=== PATIENT | male | born 1970 | race Caucasian/White ===

== ENCOUNTER 2016-12-29 15:33 | Emergency (ER) | payer OTHER ==
[2016-12-29 15:43] VITALS: TEMP 98.1
[2016-12-29] MEDS ORDERED: chlordiazePOXIDE 25 MG CAP PO ONE (16:08)
[2016-12-29] MEDS ORDERED: LORazepam 2 MG/ML INJ IVP ONE (16:08)
[2016-12-29] MEDS ORDERED: NS 1,000 ML IV ONE (16:08)
[2016-12-29 16:17] LABS: PLATELET COUNT 170 10^3/uL (150-400)
[2016-12-29 16:22] VITALS: RESP 19
[2016-12-29 17:11] VITALS: BP 150/99; PULSE 83; O2SAT 95
--- NOTE | 2016-12-29 17:31 | EDPHY ---
H & P Time Seen by Provider: 12/29/16 15:51 HPI/ROS: CHIEF COMPLAINT: Alcohol withdrawal HISTORY OF PRESENT ILLNESS: 46-year-old male reports that he has been drinking heavily for the last 2 weeks, and has decided to detox from alcohol. Last drink was last evening. He presents reporting anxiety, tremors, tachycardia. Patient does have a history of anxiety and uses Ativan for his anxiety. He took an Ativan tablet earlier this afternoon which seemed to help his symptom complex. He does have a history of alcohol withdrawal seizures. Denies fevers or chills, denies cough, shortness of breath, chest pain, vomiting or diarrhea, urinary complaints, seizure, lightheadedness, or headache. REVIEW OF SYSTEMS: Aside from elements discussed in the HPI, a comprehensive 10-point review of systems was reviewed and is negative. PAST MEDICAL HISTORY: Alcohol abuse, alcohol withdrawal seizures SOCIAL HISTORY: Denies illicit drug use. Nonsmoker. VITAL SIGNS Reviewed by me. Hypertensive. Tachycardic. GENERAL: Well-developed, well-nourished, slightly tremors, slightly anxious. HEENT: Atraumatic. Eyes: No injection. No nystagmus. Faint icterus. PERRL Mouth: moist mucous membranes. Very mild tongue fasciculations. No erythema or lesions. Neck: supple with no adenopathy. LUNGS: Clear to auscultation bilaterally, no wheezes, rhonchi or rales. CARDIAC: Regular rate and rhythm, no rubs, murmurs or gallops. ABDOMEN: Soft, nontender, nondistended, bowel sounds normal. BACK: No CVA tenderness. EXTREMITIES: No trauma. No edema. Range of motion is normal throughout. NEURO: Alert and oriented, grossly nonfocal. Slightly tremorous SKIN: Warm and dry, no rash. PSYCHIATRIC: Normal mentation, no agitation. Smoking Status: Never smoked Constitutional: Initial Vital Signs Temperature (C) 36.7 C 12/29/16 15:38 Heart Rate 115 H 12/29/16 15:38 Respiratory Rate 20 12/29/16 15:38 Blood Pressure 149/103 H 12/29/16 15:38 O2 Sat (%) 99 12/29/16 15:38 O2 Delivery Mode Room Air Allergies/Adverse Reactions: No Known Allergies Allergy (Verified 12/29/16 15:37) Home Medications: Medication Instructions Recorded Lexapro 12/29/16 Lorazepam 12/29/16 Ondansetron Odt [Zofran Odt 4 mg 4 mg PO Q6 PRN #8 tab 12/29/16 (RX)] chlordiazePOXIDE [Librium 25 mg 25 mg PO TID #6 cap 12/29/16 (*)] Medical Decision Making ED Course/Re-evaluation: IV placed. Patient received 2 L of normal saline, mg of Ativan IV, 25 mg of Librium by mouth. Tachycardia resolves, hypertension resolved. Tremors resolved. Labs remarkable for significant elevations in liver function tests. Discussed with patient the importance of medical supervision during alcohol withdrawal. He is not wish to be admitted to the [facility]. He does have Ativan at home but is unsure as to how to dose the ativan for alcohol withdrawal. He was carefully instructed not to use Ativan when he is drinking alcohol. He was given a prescription of Librium as an alternative to his Ativan for alcohol withdrawal. Differential Diagnosis: Differential diagnoses for the patient's symptom complex was considered including but not limited to alcohol withdrawal, benzodiazepine withdrawal, alcohol intoxication, alcohol withdrawal seizures, polysubstance abuse. - Data Points Laboratory Results: Laboratory Results 12/29/16 16:00 12/29/16 16:00 12/29/16 12/29/16 12/29/16 16:00 16:00 16:00 WBC 4.93 10^3/uL 10^3/uL (3.80-9.50) RBC 5.39 10^6/uL 10^6/uL (4.40-6.38) Hgb 16.9 g/dL g/dL (13.7-17.5) Hct 47.3 % % (40.0-51.0) MCV 87.8 fL fL (81.5-99.8) MCH 31.4 pg pg (27.9-34.1) MCHC 35.7 g/dL g/dL (32.4-36.7) RDW 13.9 % % (11.5-15.2) Plt Count 170 10^3/uL 10^3/uL (150-400) MPV 11.0 fL fL (8.7-11.7) Neut % (Auto) 55.0 % % (39.3-74.2) Lymph % (Auto) 27.2 % % (15.0-45.0) Esmeralda % (Auto) 16.8 % H % (4.5-13.0) Eos % (Auto) 0.0 % L % (0.6-7.6) Baso % (Auto) 0.8 % % (0.3-1.7) Nucleat RBC Rel Count 0.0 % % (0.0-0.2) Absolute Neuts (auto) 2.71 10^3/uL 10^3/uL (1.70-6.50) Absolute Lymphs (auto) 1.34 10^3/uL 10^3/uL (1.00-3.00) Absolute Monos (auto) 0.83 10^3/uL H 10^3/uL (0.30-0.80) Absolute Eos (auto) 0.00 10^3/uL L 10^3/uL (0.03-0.40) Absolute Basos (auto) 0.04 10^3/uL 10^3/uL (0.02-0.10) Absolute Nucleated RBC 0.00 10^3/uL 10^3/uL (0-0.01) Immature Gran % 0.2 % % (0.0-1.1) Immature Gran # 0.01 10^3/uL 10^3/uL (0.00-0.10) PT 11.6 SEC L SEC (12.0-15.0) INR 0.86 (0.83-1.16) APTT 24.6 SEC SEC (23.0-38.0) Sodium 136 mEq/L mEq/L (134-144) Potassium 3.8 mEq/L mEq/L (3.5-5.2) Chloride 91 mEq/L L mEq/L (97-110) Carbon Dioxide 29 mEq/l mEq/l (22-31) Anion Gap 16 mEq/L mEq/L (8-16) BUN 8 mg/dL mg/dL (7-23) Creatinine 0.8 mg/dL mg/dL (0.7-1.3) Estimated GFR > 60 Glucose 150 mg/dL H mg/dL (70-100) Calcium 10.3 mg/dL mg/dL (8.5-10.4) Total Bilirubin 1.8 mg/dL H mg/dL (0.1-1.4) Conjugated Bilirubin 0.4 mg/dL mg/dL (0.0-0.5) Unconjugated Bilirubin 1.4 mg/dL H mg/dL (0.0-1.1) AST 615 IU/L H IU/L (17-59) ALT 293 IU/L H IU/L (21-72) Alkaline Phosphatase 171 IU/L H IU/L (38-126) Total Protein 7.7 g/dL g/dL (6.3-8.2) Albumin 4.5 g/dL g/dL (3.5-5.0) Lipase 561 IU/L H IU/L (23-300) Medications Given: Discontinued Medications Chlordiazepoxide HCl (Librium) 25 mg PO EDNOW ONE Stop: 12/29/16 16:09 Last Admin: 12/29/16 16:17 Dose: 25 mg Sodium Chloride (Ns) 1,000 mls @ 0 mls/hr IV ONCE ONE; Wide Open PRN Reason: Protocol Stop: 12/29/16 16:09 Last Admin: 12/29/16 16:17 Dose: 1,000 mls Lorazepam (Ativan Injection) 1 mg IVP EDNOW ONE Stop: 12/29/16 16:09 Last Admin: 12/29/16 16:17 Dose: 1 mg Departure - Departure Disposition: Home, Routine, Self-Care Clinical Impression: Alcohol withdrawal, Elevated liver function tests, Alcoholism Condition: Good Instructions: Alcohol Withdrawal (ED) Additional Instructions: Please drink plenty of fluid. You been given a prescription for Zofran to use as needed for nausea and vomiting. For anxiety, tremors, and to prevent alcohol withdrawal seizure, you been given a prescription for Librium. This is a long acting medication which is good for alcohol withdrawal. Alternatively, you may use Ativan 1 mg 2 to 3 times a day. Do not take both Ativan and Librium at the same time. Do not drink alcohol while taking Ativan or Librium. Your liver function tests are markedly elevated. Stop drinking alcohol in excessive quantities. Please follow up with the primary care physician. Referrals: NONE *PRIMARY CARE P,. [Primary Care Provider] - As per Instructions Prescriptions: chlordiazePOXIDE [Librium 25 mg (*)] 25 mg PO TID #6 cap Ondansetron Odt [Zofran Odt 4 mg (RX)] 4 mg PO Q6 PRN #8 tab PRN Reason: Nausea
[2016-12-29 17:40] LABS: INR 0.86 (0.83-1.16); PROTIME(PATIENT) 11.6 SEC (12.0-15.0)
== END 2016-12-29 17:45 | disposition home or self-care (01) ==
DX: F10.239 Alcohol dependence with withdrawal, unspecified (principal); R79.89 Other specified abnormal findings of blood chemistry
CPT/HCPCS: 96374; J2060

== ENCOUNTER 2017-11-23 00:57 | Inpatient (IN) | payer BC, OTHER ==
--- NOTE | 2017-11-23 01:00 | EDPHY ---
H & P Time Seen by Provider: 11/23/17 00:59 HPI/ROS: HPI CHIEF COMPLAINT: Alcohol withdrawal. HISTORY OF PRESENT ILLNESS: 47-year-old male, presents emergency room stating that he recently binge drinks vodka. States last drink was at 10:00 a.m.. Presents emergency room stating that he feels like he is going to alcohol withdrawal feeling very shaky and tremulous. Denies vomiting. Denies chest pain or shortness of breath. I offered him to go to detox however he has declined. Past Medical History: Alcoholism, history of alcohol withdrawal Past Surgical History: No recent surgery Social History: Daily alcohol use. Recent alcohol binge drinking. Last drink 10:00 a.m.. Family History: Noncontributory ROS REVIEW OF SYSTEMS: 10 Systems were reviewed and negative with the exception of the elements mentioned in the history of present illness. Exam Constitutional of note upon arrival tremulous, tachycardic, triage nursing summary reviewed, vital signs reviewed, awake/alert. Eyes normal conjunctivae and sclera, EOMI, PERRLA. HENT normal inspection, atraumatic, moist mucus membranes, no epistaxis, neck supple/ no meningismus, no raccoon eyes. Respiratory clear to auscultation bilaterally, normal breath sounds, no respiratory distress, no wheezing. Cardiovascular tachycardia, regular rhythm, no murmur, no edema, distal pulses normal. Gastrointestinal soft, non-tender, no rebound, no guarding, normal bowel sounds, no distension, no pulsatile mass. Genitourinary no CVA tenderness. Musculoskeletal no midline vertebral tenderness, full range of motion, no calf swelling, no tenderness of extremities, no meningismus, good pulses, neurovascularly intact. Skin pink, warm, & dry, no rash, skin atraumatic. Neurologic somewhat confused, somewhat shaky, awake, alert and oriented x 3, AAOx3, moves all 4 extremities equally, motor intact, sensory intact, CN II-XII intact, normal cerebellar, normal vision Psychiatric normal mood/affect. Heme/Lymph/Immune no lymphadenopathy. Differential Diagnosis: Includes but is not limited to in a particular order acute alcohol draw, dehydration, electrolyte disturbance, anxiety Medical Decision Making: Plan for this patient IV establishment IV fluid bolus , IV Ativan, p.o. Librium 50 mg. Re-evaluate. Check basic electrolytes. Re-evaluation: Patient re-evaluated at 3:20 a.m., still very tremulous. With arm extension has significant tremors. Additionally tongue fasciculations present. Additionally he is tachycardic at 1:10 a.m.. I have given him a total 4 mg IV Ativan, will add additional 1 mg Ativan. Additionally will placed on CIWA protocol. I encouraged patient to be admitted to the hospital. 0341: Patient going through significant alcohol withdrawal. He has been placed on CIWA protocol. Additionally his potassium and magnesium a critically low. I have ordered this patient IV potassium, IV magnesium. He is receiving his 3rd L fluid. Additionally he scoring high on the CIWA protocol at 17. The Ativan dose will be adjusted appropriately. 40 mEq p.o. Potassium as been ordered. 20 mg and IV potassium Four g of Mag. 7 mg IV Ativan has been given. Patient on CIWA protocol. Thiamine and folate have been ordered. Patient received 3 L of fluid. I have asked the hospitalist service to admit this patient to the step-down unit. Close monitoring for alcohol draw and severe electrolyte abnormalities. EKG interpretation by me on record in [employer] system. Impression time of EKG 3:31 a.m., reason for EKG severe electrolyte abnormalities there appears to be U waves present on the EKG significant for hypokalemia. The patient has been placed on hypokalemic protocol and received 40 mg p.o. K and IV K here in emergency room. 0409: After extensive discussion with the patient he initially did not want to be admitted to the hospital however given the 8 mg IV Ativan he has gotten significant withdrawal symptoms, slightly elevated alcohol level, severe electrolyte disturbance that can cause cardiac arrest is highly recommended that he stays today to be rehydrated, resuscitated, electrolyte replacement, and help with his alcohol withdrawal. He has finally agreed to stay. Of note during the 3 hr of the emergency room care he has gotten worse despite 8 mg IV Ativan. Critical Care: Total Critical Care Time Spent Managing this Patient: 65 Minutes. This time was spent Exclusively with this patient. This Care was exclusive of procedures. The Organ System/life at risk was cardiovascular and neurological deterioration due to severe alcohol withdrawal This Patient was in Critical Condition because severe alcohol withdrawl. Alcohol DTs. Source: Patient - Medical/Surgical History Hx Asthma: No Hx Chronic Respiratory Disease: No Hx Diabetes: No Hx Cardiac Disease: No Hx Renal Disease: No Hx Cirrhosis: No Hx Alcoholism: Yes Hx HIV/AIDS: No Hx Splenectomy or Spleen Trauma: No Other PMH: anxiety - Social History Smoking Status: Never smoked Constitutional: Initial Vital Signs Temperature (C) 37.2 C 11/23/17 00:58 Heart Rate 122 H 11/23/17 00:58 Respiratory Rate 18 11/23/17 00:58 Blood Pressure 146/100 H 11/23/17 00:58 O2 Sat (%) 95 11/23/17 00:58 O2 Delivery Mode Room Air Allergies/Adverse Reactions: No Known Allergies Allergy (Verified 12/29/16 15:37) Home Medications: Medication Instructions Recorded Escitalopram Oxalate [Lexapro] 5 mg PO DAILY 12/29/16 Medical Decision Making - Data Points Laboratory Results: Laboratory Results 11/23/17 01:15 11/23/17 03:05 Medications Given: Enoxaparin Sodium (Lovenox) 40 mg SC DAILY SAMIRA Stop: 05/22/18 08:59 Last Admin: 11/23/17 09:51 Dose: 40 mg Folic Acid (Folic Acid) 1 mg PO DAILY SAMIRA Stop: 05/22/18 08:59 Last Admin: 11/23/17 09:51 Dose: 1 mg Potassium Chloride 40 meq/ (Sodium Chloride) 1,000 mls @ 100 mls/hr IV CONT SAMIRA Stop: 05/22/18 03:59 Last Admin: 11/23/17 18:20 Dose: 1,000 mls Dexmedetomidine HCl 400 mcg/ (Sodium Chloride) 104 mls @ 0 mls/hr IV CONT SAMIRA; Titrate PRN Reason: Protocol Stop: 05/22/18 10:29 Last Admin: 11/23/17 18:19 Dose: 104 mls Thiamine HCl 100 mg/ Sodium (Chloride) 101 mls @ 202 mls/hr IV DAILY SAMIRA Stop: 05/22/18 10:29 Last Admin: 11/23/17 10:49 Dose: 101 mls Famotidine/Sodium Chloride (Pepcid 20 Mg (Premix)) 50 mls @ 200 mls/hr IV Q12HRS SAMIRA Stop: 05/22/18 10:29 Last Admin: 11/23/17 11:59 Dose: 50 mls Lorazepam (Ativan Injection) 2 mg IVP Q6HRS SAMIRA Stop: 05/22/18 11:59 Last Admin: 11/23/17 17:34 Dose: 2 mg Multivitamins (Tab-A-Clifton) 1 each PO DAILY SAMIRA Stop: 05/22/18 08:59 Last Admin: 11/23/17 09:51 Dose: 1 each Ondansetron HCl (Zofran) 4 mg IVP Q4HRS PRN PRN Reason: Nausea/Vomiting, Can't Take PO Stop: 05/22/18 03:39 Last Admin: 11/23/17 04:48 Dose: 4 mg Discontinued Medications Chlordiazepoxide HCl (Librium) 50 mg PO EDNOW ONE Stop: 11/23/17 01:11 Last Admin: 11/23/17 01:49 Dose: 50 mg Chlordiazepoxide HCl (Librium) 25 mg PO TID [facility] Stop: 05/22/18 08:59 Last Admin: 11/23/17 09:51 Dose: 25 mg Folic Acid (Folic Acid) 1 mg PO EDNOW ONE Stop: 11/23/17 03:42 Last Admin: 11/23/17 05:16 Dose: 1 mg Sodium Chloride (Ns) 1,000 mls @ 0 mls/hr IV EDNOW ONE; Wide Open PRN Reason: Protocol Stop: 11/23/17 01:11 Last Admin: 11/23/17 01:18 Dose: 1,000 mls Sodium Chloride (Ns) 1,000 mls @ 0 mls/hr IV EDNOW ONE; Wide Open PRN Reason: Protocol Stop: 11/23/17 01:11 Last Admin: 11/23/17 01:27 Dose: 1,000 mls Potassium Chloride (Potassium Cl 20 Meq (Premix)) 100 mls @ 50 mls/hr IV EDNOW ONE Stop: 11/23/17 05:31 Last Admin: 11/23/17 04:42 Dose: 100 mls Magnesium Sulfate (Magnesium Sulf 2 Gm (Premix)) 50 mls @ 50 mls/hr IV EDNOW ONE Stop: 11/23/17 04:39 Last Admin: 11/23/17 03:40 Dose: 50 mls Magnesium Sulfate (Magnesium Sulf 2 Gm (Premix)) 50 mls @ 50 mls/hr IV EDNOW ONE Stop: 11/23/17 04:40 Last Admin: 11/23/17 05:18 Dose: 50 mls Sodium Chloride (Ns) 1,000 mls @ 0 mls/hr IV EDNOW ONE; Wide Open PRN Reason: Protocol Stop: 11/23/17 03:31 Last Admin: 11/23/17 05:20 Dose: Not Given Potassium Chloride (Potassium Cl 10 Meq (Premix)) 100 mls @ 50 mls/hr IV Q2H SAMIRA Stop: 11/23/17 15:59 Last Admin: 11/23/17 14:00 Dose: 100 mls Lorazepam (Ativan Injection) 1 mg IVP EDNOW ONE Stop: 11/23/17 01:11 Last Admin: 11/23/17 01:28 Dose: 1 mg Lorazepam (Ativan Injection) 1 mg IVP EDNOW ONE Stop: 11/23/17 01:53 Last Admin: 11/23/17 01:56 Dose: 1 mg Lorazepam (Ativan Injection) 0 mg IVP Q1H PRN; Protocol PRN Reason: Alcohol Withdrawal w/IV access Stop: 11/23/17 15:20 Last Admin: 11/23/17 04:03 Dose: 2 mg Lorazepam (Ativan Injection) 1 mg IVP EDNOW ONE Stop: 11/23/17 03:21 Last Admin: 11/23/17 05:22 Dose: Not Given Lorazepam (Ativan Injection) 0 mg IVP Q1H PRN; Protocol PRN Reason: Alcohol Withdrawal w/IV access Stop: 05/22/18 03:40 Last Admin: 11/23/17 09:59 Dose: 2 mg Lorazepam (Ativan Injection) 2 mg IVP ONCE ONE Stop: 11/23/17 03:48 Last Admin: 11/23/17 04:48 Dose: 2 mg Ondansetron HCl (Zofran) 4 mg IVP EDNOW ONE Stop: 11/23/17 01:30 Last Admin: 11/23/17 01:29 Dose: 4 mg Potassium Chloride (Potassium Chloride Oral Liquid) 40 meq PO EDNOW ONE Stop: 11/23/17 03:34 Last Admin: 11/23/17 03:40 Dose: 40 meq Thiamine HCl (Vitamin B-1) 100 mg PO EDNOW ONE Stop: 11/23/17 03:35 Last Admin: 11/23/17 04:00 Dose: 100 mg Departure - Departure Disposition: [facility] Inpatient Acute Clinical Impression: Dehydration, Hypokalemia, Hypomagnesemia, Delirium tremens Alcohol withdrawal Qualifiers: Complication of substance-induced condition: uncomplicated Qualified Code(s): F10.230 - Alcohol dependence with withdrawal, uncomplicated Condition: Good
[2017-11-23] MEDS ORDERED: LORazepam 2 MG/ML INJ ONE (01:07)
[2017-11-23] MEDS ORDERED: NS 1,000 ML IV ONE ×3 (01:10→03:30)
[2017-11-23] MEDS ORDERED: LORazepam 2 MG/ML INJ IVP ONE ×4 (01:10→03:47)
[2017-11-23] MEDS ORDERED: chlordiazePOXIDE 25 MG CAP PO ONE (01:10)
[2017-11-23] MEDS ORDERED: ONDANSETRON 4 MG/2 ML VIAL ONE (01:24)
[2017-11-23] MEDS ORDERED: ONDANSETRON 4 MG/2 ML VIAL IVP ONE (01:29)
[2017-11-23 01:32] LABS: PLATELET COUNT 191 10^3/uL (150-400)
[2017-11-23] MEDS ORDERED: LORazepam 1 MG TAB PO PRN (03:20)
[2017-11-23] MEDS: LORazepam 2 MG/ML INJ IVP PRN ×6 (03:31→09:59)
[2017-11-23] MEDS ORDERED: POTASSIUM Cl (KCl) 100 ML IV ONE (03:32)
[2017-11-23] MEDS ORDERED: POTASSIUM CL 20 MEQ/15 ML UDCUP PO ONE (03:33)
[2017-11-23] MEDS ORDERED: POTASSIUM Cl (KCl) 10 MEQ/100 ML BAG IV ONE (03:36)
[2017-11-23] MEDS ORDERED: ONDANSETRON 4 MG/2 ML VIAL IVP PRN (03:40)
[2017-11-23] MEDS ORDERED: ONDANSETRON DISINTEGRATING 4 MG TAB PO PRN (03:40)
[2017-11-23] MEDS ORDERED: MAGNESIUM SULF 2 GM/WATER 50 ML IV ONE ×2 (03:40→03:41)
[2017-11-23] MEDS ORDERED: ACETAMINOPHEN 325 MG TAB PO PRN (03:40)
[2017-11-23] MEDS ORDERED: FLUMAZENIL 0.5 MG/5 ML MDV IVP PRN (03:41)
[2017-11-23] MEDS ORDERED: FOLIC ACID 1 MG TAB PO ONE (03:41)
[2017-11-23] MEDS ORDERED: PROTOCOL POTASSIUM 1 DOSE MISC PRN (03:42)
[2017-11-23] MEDS ORDERED: PROTOCOL MAGNESIUM 1 DOSE IV PRN (03:42)
[2017-11-23] MEDS: THIAMINE HCL 100 MG TAB PO ONE ×2 (03:53→04:00)
--- NOTE | 2017-11-23 04:20 | PDGENHP ---
History and Physical - Chief Complaint ETOH w/d - History of Present Illness 47 yo M w/ hx of anxiety and ETOH abuse presents with complaints of ETOH withdrawal. He tells me he is usually sober but will periodically binge. Over the last 10 days he has drank 1-2 pints of vodka daily. He has not done since in about a year. At the time of his arrival here he was visibly tremulous and tachycardic. He has significant electrolyte derangements. He continues to be significantly tremulous despite lorazepam 8 mg IV total and Librium 50 mg x1 given in the ED. He has prior history of ETOH withdrawal seizures. Case discussed with ED physician Dr. Gonzales; records reviewed in EMR. History Information - Allergies/Home Medication List Allergies/Adverse Reactions: No Known Allergies Allergy (Verified 12/29/16 15:37) Home Medications: Lexapro 12/29/16 [Last Taken Unknown] I have personally reviewed and updated: family history, medical history - Past Medical History Additional medical history: Anxiety - Surgical History Reports: no pertinent surgical hx - Family History Additional family history: Asked, denies - Social History Smoking Status: Never smoked Review of Systems Review of Systems: ROS: 10pt was reviewed & negative except for what was stated in HPI & below Physical Exam Physical Exam: Temp Pulse Resp BP Pulse Ox 37.2 C 113 H 20 111/83 H 92 11/23/17 00:58 11/23/17 02:30 11/23/17 02:30 11/23/17 02:30 11/23/17 02:30 Constitutional: appears nourished, uncomfortable Eyes: PERRL, EOMI Ears, Nose, Mouth, Throat: moist mucous membranes, no oral mucosal ulcers Cardiovascular: no murmur, rub, or gallop, tachycardia Respiratory: no respiratory distress, clear to auscultation Gastrointestinal: normoactive bowel sounds, soft, non-tender abdomen Skin: warm, normal color Musculoskeletal: full muscle strength, no muscle tenderness Neurologic: AAOx3, other (Tremulous, +tongue fasciculations, +hyperreflexia) Psychiatric: anxious, poor judgement Lab Data & Imaging Review 11/23/17 01:15 11/23/17 03:05 WBC 13.97 10^3/uL (3.80-9.50) H 11/23/17 01:15 RBC 5.47 10^6/uL (4.40-6.38) 11/23/17 01:15 Hgb 17.8 g/dL (13.7-17.5) H 11/23/17 01:15 Hct 49.7 % (40.0-51.0) 11/23/17 01:15 MCV 90.9 fL (81.5-99.8) 11/23/17 01:15 MCH 32.5 pg (27.9-34.1) 11/23/17 01:15 MCHC 35.8 g/dL (32.4-36.7) 11/23/17 01:15 RDW 14.2 % (11.5-15.2) 11/23/17 01:15 Plt Count 191 10^3/uL (150-400) 11/23/17 01:15 MPV 11.3 fL (8.7-11.7) 11/23/17 01:15 Neut % (Auto) 80.6 % (39.3-74.2) H 11/23/17 01:15 Lymph % (Auto) 10.7 % (15.0-45.0) L 11/23/17 01:15 [place] % (Auto) 7.7 % (4.5-13.0) 11/23/17 01:15 Eos % (Auto) 0.1 % (0.6-7.6) L 11/23/17 01:15 Baso % (Auto) 0.2 % (0.3-1.7) L 11/23/17 01:15 Nucleat RBC Rel Count 0.0 % (0.0-0.2) 11/23/17 01:15 Absolute Neuts (auto) 11.25 10^3/uL (1.70-6.50) H 11/23/17 01:15 Absolute Lymphs (auto) 1.50 10^3/uL (1.00-3.00) 11/23/17 01:15 Absolute Monos (auto) 1.08 10^3/uL (0.30-0.80) H 11/23/17 01:15 Absolute Eos (auto) 0.01 10^3/uL (0.03-0.40) L 11/23/17 01:15 Absolute Basos (auto) 0.03 10^3/uL (0.02-0.10) 11/23/17 01:15 Absolute Nucleated RBC 0.00 10^3/uL (0-0.01) 11/23/17 01:15 Immature Gran % 0.7 % (0.0-1.1) 11/23/17 01:15 Immature Gran # 0.10 10^3/uL (0.00-0.10) 11/23/17 01:15 Sodium 134 mEq/L (135-145) L 11/23/17 03:05 Potassium 2.6 mEq/L (3.3-5.0) L* 11/23/17 03:05 Chloride 90 mEq/L (97-110) L 11/23/17 03:05 Carbon Dioxide 30 mEq/l (22-31) 11/23/17 03:05 Anion Gap 14 mEq/L (8-16) 11/23/17 03:05 BUN 14 mg/dL (7-23) 11/23/17 03:05 Creatinine 0.7 mg/dL (0.7-1.3) 11/23/17 03:05 Estimated GFR > 60 11/23/17 03:05 Glucose 99 mg/dL (70-100) 11/23/17 03:05 Calcium 7.9 mg/dL (8.5-10.4) L 11/23/17 03:05 Magnesium 1.1 mg/dL (1.6-2.3) L 11/23/17 03:05 Total Bilirubin 2.4 mg/dL (0.1-1.4) H 11/23/17 03:05 Conjugated Bilirubin 0.5 mg/dL (0.0-0.5) 11/23/17 03:05 Unconjugated Bilirubin 1.9 mg/dL (0.0-1.1) H 11/23/17 03:05 AST 91 IU/L (17-59) H 11/23/17 03:05 ALT 45 IU/L (21-72) 11/23/17 03:05 Alkaline Phosphatase 72 IU/L (38-126) 11/23/17 03:05 Total Protein 6.2 g/dL (6.3-8.2) L 11/23/17 03:05 Albumin 3.6 g/dL (3.5-5.0) 11/23/17 03:05 Ethyl Alcohol 44 mg/dL (0-10) H 11/23/17 01:15 Visualized and Interpreted EKG results: Yes EKG Interpretation: Positive for: normal sinsus rhythm Assessment & Plan Assessment: 47 yo M presents with alcohol withdrawal and electrolyte derangements. Plan: 1. ETOH abuse with acute withdrawal - Binges periodically; currently on 10 day binge of 1-2 pints of vodka daily. Withdrawal symptoms remain significant despite lorazepam 8 mg IV total so far in the ED. Last drink at 10 AM on day prior to admission. He does have prior hx of alcohol withdrawal seizure. - Admit to SDU for close monitoring - CIWA protocol ordered - Will add scheduled Librium as well as I anticipate withdrawal may be severe 2. Hypokalemia - 2.6 on admission; related to heavy ETOH intake. - Replacement protocol ordered 3. Hypomagnesemia - Replacement protocol ordered 4. Abnormal LFTs - Mildly elevated bilirubin and AST; 2/2 toxic effects of ETOH. Diet - Regular Code - Full Ppx - LMWH Dispo - Admit under observation status
[2017-11-23] MEDS: POTASSIUM Cl (KCl) 40 MEQ in NS 1,000 ML IV SCH ×2 (05:17→18:20)
[2017-11-23] MEDS ORDERED: THIAMINE HCL 500 MG in NS 100 ML IV SCH (06:00)
--- NOTE | 2017-11-23 08:42 | HOSPPROG ---
Hospitalist Progress Note Assessment/Plan: DIAGNOSES: * Acute Etoh WD, DTs * requiring fairly high dosing of benzos at present * Hypo K/Mg * protocol replacement * Hx of Etoh WD Szs * Alcoholism -Seen by me on hospitalist rounds and interdisciplinary rounds -reviewed in detail with Dr Putnam -> 35 mins at bedside -At present he is not being adequately controlled with significant benzo doses and is escalating. The patient has presented of his own accord to the hospital for help from alcohol withdrawal. At this point and will need Precedex to adequately control him as he is going to escalate rapidly. Expect he will have a prolonged and difficult course PLANS: * continue CIWA; will add precedex drip at present, scheduled ativan to prevent sz's * lyte replacments * thiamine * DVT and ulcer proph * will need etoh counseling when able to participate SUBJECTIVE: Patient says he is comfortable and feels better than yesterday, but was not able to explain to me what he means by this. 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: Sinus Exam: alert tremulous nervous and agitated, not well oriented, becoming uncooperative despite very large doses of Librium and Ativan and here less than 24 hr after presenting with alcohol still in his blood skin warm dry color ok resps not labored lungs clear BSs heart regular abd soft nondistended nontender, bowel sounds present limbs warm, no edema iv site ok Lab data: Potassium and magnesium still fairly low after some replacement Bili 2.4, AST 91 Renal function stable Objective: Vital Signs Temp Pulse Resp BP Pulse Ox 37.1 C 87 16 125/78 H 95 11/23/17 05:00 11/23/17 07:30 11/23/17 07:30 11/23/17 07:30 11/23/17 07:30 11/22/17 11/23/17 11/24/17 06:59 06:59 06:59 Intake Total 3222 Output Total 300 Balance 2922 ICD10 Worksheet Patient Problems: Problems Problem Status Onset Alcohol withdrawal Acute Dehydration Acute Hypokalemia Acute Hypomagnesemia Acute
[2017-11-23] MEDS ORDERED: chlordiazePOXIDE 25 MG CAP PO SCH (09:00)
--- NOTE | 2017-11-23 09:23 | ASMTCMCOM ---
CM Note CM Note Notes: 47yr old male admitted after a 10 day ETOH binge for ETOH W/D. He has a Hx of ETOH W/D Sz, Anxiety. 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 Patient on CIWA. CM to follow. Date Signed: 11/23/2017 09:22 AM Electronically Signed By:Courtney Poe LCSW
[2017-11-23] MEDS: FOLIC ACID 1 MG TAB PO SCH (09:51)
[2017-11-23] MEDS: ENOXAPARIN 40 MG/0.4 ML SYR SC SCH (09:51)
[2017-11-23] MEDS: MULTIVITAMINS 1 EACH TAB PO SCH (09:51)
[2017-11-23] MEDS: DEXMEDETOMIDINE HCL 400 MCG in NS 100 ML IV SCH ×2 (10:46→18:19)
[2017-11-23] MEDS: THIAMINE HCL 100 MG in NS 100 ML IV SCH (10:49)
--- NOTE | 2017-11-23 11:53 | PDMN ---
Medical Necessity Medical necessity: [facility] [place]: M595 substance related disorders : ETOH W/D with DT's hypo K/ Mg, Hx of ETOH WD SZ., CIWA protocol pt not adequately controlled with sig. benzo doses - escalating, will add precedex drip, tachycardia, HTN, tremulous, nervous, agitated, not well oriented, becoming uncooperative. anticipate > 2 MN ongoing med nec care, eval and further tx.
[2017-11-23] MEDS: FAMOTIDINE 20 MG/NACL 50 ML IV SCH (11:59)
[2017-11-23] MEDS: LORazepam 2 MG/ML INJ IVP SCH ×2 (11:59→17:34)
[2017-11-23] MEDS: POTASSIUM Cl (KCl) 100 ML IV SCH ×2 (11:59→14:00)
--- NOTE | 2017-11-23 14:34 | GCON ---
PULMONARY CRITICAL CARE CONSULTATION DATE OF CONSULTATION: 11/23/2017 REASON FOR CONSULTATION: Alcohol withdrawal, DTs. HISTORY: The patient is a 47-year-old with a history of intermittent significant alcohol abuse. Edgar arently, he has had trouble with alcohol withdrawal in the past and may have had alcohol withdrawal s eizures? In any case, he has been drinking heavily over the last 10 days or so, several pints of vod ka per day. He recently lost his job. He came to the emergency room having stopped drinking with a blood alcohol of 44. He was quite tremulous and tachycardic and wanted treatment for alcohol withdra wal. He was evaluated in the emergency department and admitted to the intensive care unit. Other pr oblems on admission, included hypokalemia and leukocytosis. PAST MEDICAL HISTORY: Depression, anxiety. He was on Lexapro. SOCIAL HISTORY: The patient recently worked in [employer] for [employer] by his history. He does not smoke cigaret ama. Alcohol is as noted above. He states he lives with his girlfriend/fiancee. She apparently lentz s not drink. FAMILY HISTORY: Difficult to obtain. REVIEW OF SYSTEMS: Denies heart or lung disease or other significant problems. 10-point review of s bebetotejudy appears to be negative, but this is somewhat hard to obtain as he is confused and mental status waxes and wanes. PHYSICAL EXAMINATION: GENERAL: Reveals a gentleman who is quite tremulous. He is oriented x2, thin sander he is in [place]. VITAL SIGNS: Blood pressure is 130/80, heart rate 90 with sinus rhythm on the monitor. On room air, saturations are 92%. He is afebrile. HEENT: Unremarkable for lymphadeno beau or thyromegaly. There is no jugular venous distention. Mucous membranes are moist. Pupils ar e equal. CHEST: Clear bilaterally. Breath sounds are diminished at the bases. HEART: Regular in rate and rhythm without significant murmur or gallop. ABDOMEN: Nontender. Bowel sounds are present . A liver edge is possibly appreciated? There is no splenomegaly. EXTREMITIES: Unremarkable for e tasia, cords, or tenderness. : No Edmonds catheter is in place. NEUROLOGIC: Nonfocal. He moves al l extremities equally. A coarse tremor is present. He is oriented x2. DATABASE: White blood cell count is 13,900, hematocrit 49.7, MCV is normal, platelets are within nor mal limits. Sodium is 134, potassium 2.6 this morning, corrected to 3.8, chloride is 90, CO2 30, ani on gap 14, BUN 14 with a creatinine of 1.7. Magnesium is 1.1, corrected to 2.0. Total bilirubin is 2.4, AST is 91 with an ALT of 45. Albumin is 3.6. Tox screen on admission was positive for benzodia zepines, possibly given prior to obtaining the tox screen and for a blood alcohol of 44. ASSESSMENT: 1. Alcohol withdrawal. The patient has severe delirium tremens. He has been treated with high-dose benzodiazepines, both intravenous Ativan, as well as oral Librium. He continues to escalate and cecy ts criteria for Precedex. He is on the CIWA protocol. Thiamine is being given. 2. Metabolic hypokalemia and hypomagnesemia are initially present. Electrolyte replacements protoco ls will be ordered. 3. Gastrointestinal prophylaxis: On famotidine. 4. Deep venous thrombosis prophylaxis: On enoxaparin. 5. History of anxiety and depression. Lexapro can be continued. PLAN/RECOMMENDATIONS: The patient will be kept in the intensive care unit. Intravenous fluids will be given. Scheduled Ativan will be given to prevent alcohol withdrawal seizures and to treat alcohol withdrawal. Precedex will be initiated and titrated per the CIWA protocol. Haldol can be given if needed. Electrolytes and CBC will be followed. A swallow evaluation will be obtained. He may not b e able to swallow safely based on his level of sedation required. Famotidine and enoxaparin will be continued. Further plans and recommendations will be made based on his progress over the next 12-24 hours. /[id number]/MODL
--- NOTE | 2017-11-23 15:22 | CPEKG ---
Test Reason : OPEN Blood Pressure : / mmHG Vent. Rate : 104 BPM Atrial Rate : 105 BPM P-R Int : 118 ms QRS Dur : 078 ms QT Int : 355 ms P-R-T Axes : 076 092 028 degrees QTc Int : 467 ms Sinus tachycardia Borderline right axis deviation Minimal ST depression, inferior leads Confirmed by Janie Tony ([id number]) on 11/23/2017 3:22:33 PM Referred By: Confirmed By:Janie Tony
[2017-11-24] MEDS: FAMOTIDINE 20 MG/NACL 50 ML IV SCH ×2 (00:52→11:11)
[2017-11-24] MEDS: LORazepam 2 MG/ML INJ IVP SCH ×5 (01:07→23:29)
[2017-11-24] MEDS: POTASSIUM Cl (KCl) 100 ML IV SCH ×2 (01:30→03:56)
[2017-11-24] MEDS: POTASSIUM Cl (KCl) 40 MEQ in NS 1,000 ML IV SCH ×2 (04:08→17:45)
[2017-11-24] MEDS: DEXMEDETOMIDINE HCL 400 MCG in NS 100 ML IV SCH (04:08)
[2017-11-24] MEDS ORDERED: THIAMINE HCL 100 MG TAB PO SCH (09:00)
[2017-11-24] MEDS: MULTIVITAMINS 1 EACH TAB PO SCH (09:16)
[2017-11-24] MEDS: ENOXAPARIN 40 MG/0.4 ML SYR SC SCH (09:16)
[2017-11-24] MEDS: THIAMINE HCL 100 MG in NS 100 ML IV SCH (09:16)
[2017-11-24] MEDS: FOLIC ACID 1 MG TAB PO SCH (09:16)
--- NOTE | 2017-11-24 11:39 | HOSPPROG ---
Hospitalist Progress Note Assessment/Plan: DIAGNOSES: * Acute Etoh WD, DTs * Currently on Precedex drip and scheduled Ativan, with reasonable control of his agitation and delirium most of the time but may need to have Precedex increased; given the timing is still quite possible he may get notably worse before it gets better * Hypo K/Mg/Phos * protocol replacement * Hx of Etoh WD Szs * Alcoholism -Seen by me on hospitalist rounds and interdisciplinary rounds -reviewed in detail with Dr Putnam -> 35 mins at bedside PLANS: * continue CIWA; continue precedex drip at present, scheduled ativan to prevent sz's; will add some Haldol to help manage his paranoia particularly at night as needed * lyte replacments * thiamine * DVT and ulcer proph * will need etoh counseling when able to participate SUBJECTIVE: Patient says he feels comfortable with no pain Does feel anxious, admits that overnight he had quite a bit of a fear, paranoia , anxiety despite ongoing Precedex and Ativan During my initial visit today he said that he wanted to get in contact with his mother and felt he needed to get his phone from home, though subsequently told social work administrator that he did not want to contact his mother and did not want her new that he was here Per nurses he had an okay night, but on attempts to wean his Precedex he did become increasingly agitated this morning, has been having CIWA scores of 8 through the morning hours today on Precedex and Ativan OBJECTIVE Vitals reviewed: Some tachycardia this morning and diastolic blood pressure is mildly elevated 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, my review: Sinus Exam: alert less tremulous but remains nervous and at times agitated; better oriented , at times coherent with conversation and cooperative at other times less so skin warm dry color ok resps not labored lungs clear BSs heart regular abd soft nondistended nontender, bowel sounds present limbs warm, no edema iv site ok Lab data: Potassium and magnesium okay, Phos is low Objective: Vital Signs Temp Pulse Resp BP Pulse Ox 37.0 C 74 15 150/103 H 96 11/24/17 11:25 11/24/17 11:25 11/24/17 11:25 11/24/17 11:25 11/24/17 11:25 Laboratory Results 11/24/17 06:00 11/23/17 11/24/17 11/25/17 06:59 06:59 06:59 Intake Total 3222 3050 Output Total 300 950 Balance 2922 2106 - Time Spent With Patient Time Spent with Patient: greater than 35 minutes Time Spent with Patient: Greater than 35 minutes spent on this patients care, greater than 50% of time spent counseling, educating, and coordinating care regarding the above mentioned plan. ICD10 Worksheet Patient Problems: Problems Problem Status Onset Alcohol withdrawal Acute Dehydration Acute Delirium tremens Acute Hypokalemia Acute Hypomagnesemia Acute
--- NOTE | 2017-11-24 12:55 | ASMTCMCOM ---
CM Note CM Note Notes: Patient interested in returning home. Wanted to contact his mother. This CM asked if I could help find her # for him to call? He replied that he needed to get home and didn't want my help in finding her #. Patient's CIWA score today = 8. Date Signed: 11/24/2017 12:18 PM Electronically Signed By:Courtney Poe LCSW
[2017-11-24] MEDS ORDERED: PROTOCOL K PHOSPHATE 1 DOSE IV PRN (14:55)
--- NOTE | 2017-11-24 14:58 | PDINTPN ---
Director Nurses' Registry Progress Note Assessment/Plan: Assessment: Alcohol withdrawal. Relatively severe. On CIWA. Requiring Precedex. On scheduled Ativan. Chronic alcohol abuse History of anxiety Metabolic: On replacement protocols. Hypophosphatemic. Prophylaxis: On enoxaparin and famotidine. Plan: Continue care in the intensive care unit. Continue Precedex. Wean as tolerated. Continue scheduled Ativan. Can possibly started decreases in a.m.. Follow electrolytes with replacement as per protocols. Continue enoxaparin and famotidine. 25 min of critical care time spent directly with the patient. Discussed with hospitalist, nursing, and the ICU multi disciplinary team. Subjective: Confused at times, calmer on Precedex. Objective: Vital Signs Temp Pulse Resp BP Pulse Ox 37.0 C 74 15 159/104 H 96 11/24/17 11:25 11/24/17 11:25 11/24/17 11:25 11/24/17 12:27 11/24/17 11:25 Laboratory Results 11/24/17 06:00 11/23/17 11/24/17 11/25/17 05:59 05:59 05:59 Intake Total 3222 3056 Output Total 300 950 400 Balance 2922 2106 -400 Laboratory Tests 11/24/17 11/24/17 06:00 06:00 Phosphorus 2.3 L Magnesium 1.9 Physical Exam - Physical Exam General Appearance: no apparent distress, other (Sedated, arouses, call) EENT: PERRL/EOMI, other (On room air) Neck: normal inspection (No JVD) Respiratory: lungs clear, decreased breath sounds (At bases), No rales, No rhonchi Cardiac/Chest: regular rate, rhythm Abdomen: normal bowel sounds, non-tender, soft Male Genitalia: other (No Edmonds catheter) Skin: normal color, warm/dry Extremities: No pedal edema Neuro/Psych: no motor/sensory deficits (Moves all extremities equally. Tremor improved), cognition abnormalities (Confused at times. Will orient.) ICD10 Worksheet Patient Problems: Problems Problem Status Onset Alcohol withdrawal Acute Dehydration Acute Hypokalemia Acute Hypomagnesemia Acute Delirium tremens Acute
[2017-11-24] MEDS: LORazepam 1 MG TAB PO PRN ×2 (16:31→19:38)
[2017-11-24] MEDS ORDERED: HALOPERIDOL 5 MG TAB PO PRN (19:39)
[2017-11-24] MEDS: FAMOTIDINE 20 MG TAB PO SCH (19:42)
[2017-11-25] MEDS ORDERED: HALOPERIDOL 5 MG TAB PO SCH
[2017-11-25] MEDS: LORazepam 1 MG TAB PO PRN ×2 (00:17→08:35)
[2017-11-25] MEDS: LORazepam 2 MG/ML INJ IVP SCH (05:24)
[2017-11-25] MEDS ORDERED: PROTOCOL POTASSIUM 1 DOSE MISC PRN (06:48)
[2017-11-25] MEDS ORDERED: POTASSIUM CL 10 MEQ TAB PO ONE (06:50)
[2017-11-25] MEDS ORDERED: MAGNESIUM SULF 2 GM/WATER 50 ML IV ONE (07:21)
[2017-11-25] MEDS: FAMOTIDINE 20 MG TAB PO SCH (08:41)
[2017-11-25] MEDS: MULTIVITAMINS 1 EACH TAB PO SCH (08:41)
[2017-11-25] MEDS: THIAMINE HCL 100 MG in NS 100 ML IV SCH (08:41)
[2017-11-25] MEDS: ENOXAPARIN 40 MG/0.4 ML SYR SC SCH (08:41)
[2017-11-25] MEDS: FOLIC ACID 1 MG TAB PO SCH (08:42)
[2017-11-25 11:44] VITALS: BP 139/85
--- NOTE | 2017-11-25 11:44 | PDINTPN ---
Supervisor Plasma Progress Note Assessment/Plan: Assessment: Alcohol withdrawal. Relatively severe. On CIWA. Required Precedex. On Ativan. Demanding to go home. He appears to understand the need for further treatment and is being sent home on Librium. He indicates that he will abstain from alcohol. Chronic alcohol abuse History of anxiety Metabolic: On replacement protocols. Hypophosphatemic, hypokalemic, hypomagnesemic. Prophylaxis: On enoxaparin and famotidine. Plan: For discharge today on a Librium taper. Discussed with Dr. Mares. Although he says he will not return to alcohol there is always a concern regarding this. If he does I would not be surprised to see him back in the ED/ hospital in the near future.. 20 min of critical care time spent directly with the patient. Discussed with hospitalist, nursing. Subjective: Remains tremulous and somewhat confused however says he feels okay and wants to leave the hospital Objective: Vital Signs Temp Pulse Resp BP Pulse Ox 36.4 C 119 H 14 146/95 H 94 11/25/17 08:00 11/25/17 08:00 11/25/17 08:00 11/25/17 08:00 11/25/17 08:00 Laboratory Results 11/25/17 05:20 11/24/17 11/25/17 11/26/17 05:59 05:59 05:59 Intake Total 3056 1200 Output Total 950 2925 Balance 2106 -1725 Laboratory Tests 11/25/17 05:20 Potassium 3.0 L Phosphorus 2.4 L Magnesium 1.2 L Physical Exam - Physical Exam General Appearance: alert, no apparent distress, thin EENT: PERRL/EOMI Neck: normal inspection Respiratory: lungs clear, normal breath sounds Cardiac/Chest: tachycardia (sinus) Abdomen: normal bowel sounds, non-tender, soft Skin: normal color, warm/dry Extremities: No pedal edema Neuro/Psych: other (More tremulous this morning, confused initially then orients - responses tangential.) ICD10 Worksheet Patient Problems: Problems Problem Status Onset Alcohol withdrawal Acute Dehydration Acute Hypokalemia Acute Hypomagnesemia Acute Delirium tremens Acute
--- NOTE | 2017-11-25 13:41 | PDDCSUM ---
Discharge Summary Discharge Summary: DISCHARGE DIAGNOSES: * acute alcohol withdrawal syndrome with delirium and agitation * chronic anxiety disorder * alcoholism with expected nutritional deficiencies CONSULTANTS: Dr. England [facility] COURSE SUMMARY: This patient who has a chronic history of anxiety disorder and intermittent heavy alcohol history and some past alcohol withdrawal symptoms including seizures, comes in the hospital experiencing alcohol withdrawal having stopped drinking prior to admission. He was requesting detoxification here in the hospital. Patient was admitted the hospital started on thiamin and IV hydration and treated with benzodiazepines by the [facility] protocol. He as cleared fairly quickly initially was placed on a Precedex drip, and was given some doses of Haldol on the nights when he became much more anxious and paranoid. The patient had alcohol withdrawal of moderate severity complicated by agitation and significant delirium. He did improve somewhat more rapidly than expected. At this time the patient is still using scheduled and intermittent as needed Ativan doses, as well as some Zofran. He is however able to have a reasonably normal conversation, is cooperative, it is much better oriented. At this point he is not willing to stay in the hospital for further care even though I discussed with him that this is recommended as it is not felt that he is as safe out of the hospital as is with ongoing nursing monitoring and care here. I did review with the patient they recommended medications that he would take and is able to repeat those for me at this time and their schedule. Patient does see and counselor who is a psychologist on a regular basis for his anxiety. He had previously been taking Lexapro and but stopped 4 months ago as it made him feel psychologically flat. Reviewed with him that since stopping that medicine he has had ongoing worsening anxiety and fears, gotten back on alcohol and up in the hospital with alcohol withdrawal. Reviewed that clearly alcohol and street drugs will not be a good answer for him and certainly fairly dangerous for him. Recommended that he consider working with his primary care physician or psychiatrist on considering other antidepressant or medications that might help with his anxiety disorder. The patient states he has not had any suicidal ideation or thoughts. PENDING TEST RESULTS: None MEDICATION CHANGES: Librium 50 mg three times daily for 3 days, 25 mg three times daily x2 days, then 12.5 mg x3 days then stop Ativan 2 mg p.r.n. Is prescribed to use if the Librium is ineffective, and q.4 hours as needed, # 12 prescribed Haldol 5 mg every 6 hr as needed, 6. Prescribed Zofran also prescribed for nausea as needed FOLLOW-UP PLAN: He has an appointment set up at this time with his mental health counselor He has a list of local resources and plans to enroll at a alcohol rehabilitation center in the next couple of days Was recommended he see his primary care physician within 2 weeks Greater than 35 minutes bedside and care coordination time today
== END 2017-11-25 12:55 | disposition home or self-care (01) | DRG 897 ==
LOC: F2N 04:36
PROVIDERS: ADMIT Student in an Organized Health Care Education/Training Program; ATTEND Internal Medicine
PROC: HZ2ZZZZ Detoxification Services for Substance Abuse Treatment (ICD-10-PCS; principal; 2017-11-23)
DX: F10.231 Alcohol dependence with withdrawal delirium (principal); F41.9 Anxiety disorder, unspecified; E87.6 Hypokalemia; E83.42 Hypomagnesemia; E86.0 Dehydration; R94.5 Abnormal results of liver function studies; F32.9 Major depressive disorder, single episode, unspecified; Y90.2 Blood alcohol level of 40-59 mg/100 ml
CPT/HCPCS: 80305; 96374; G0480; J1650; J2060; J2405; J3411; J3475; J3480

== ENCOUNTER 2018-06-17 09:43 | Emergency (ER) | payer OTHER | END 2018-06-17 11:54 | disposition home or self-care (01) | DX: S01.01XA Laceration without foreign body of scalp, initial encounter (principal); W10.8XXA Fall (on) (from) other stairs and steps, initial encounter ==

== ENCOUNTER 2018-07-28 20:19 | Emergency (ER) | payer OTHER | END 2018-07-28 21:08 ==